=== PATIENT | female | born 1960 | race Caucasian/White ===

== ENCOUNTER 2021-05-15 17:55 | Emergency (ER) | payer OTHER ==
[~2021-05-15] VITALS: Ht 170.2 cm; Wt 87.1 kg
[2021-05-15 18:19] VITALS: BP 149/60
[2021-05-15] MEDS ORDERED: OLANZAPINE 5 MG TABLET ONE (18:52)
[2021-05-15] MEDS ORDERED: ALPRAZOLAM 0.25 MG TABLET ONE (18:55)
[2021-05-15] MEDS ORDERED: ALPRAZOLAM 0.5 MG TABLET ONE (18:55)
[2021-05-15] MEDS: ALPRAZOLAM 0.5 MG TABLET PO ONE (19:00)
[2021-05-15] MEDS ORDERED: OLANZAPINE 5 MG TABLET PO ONE (19:00)
[2021-05-15] MEDS ORDERED: ALPR0.5T PO (19:08)
--- NOTE | 2021-05-15 19:18 | NUR ---
Patient discharged to home in stable condition. Written and verbal after care instructions given. Patient verbalizes understanding of instruction.
== END 2021-05-15 19:18 | disposition home or self-care (01) ==
LOC: ER 18:13
DX: F41.0 Panic disorder [episodic paroxysmal anxiety] (principal); Z79.899 Other long term (current) drug therapy